=== PATIENT | male | born 1980 | race Two or more races ===

== ENCOUNTER 2025-06-28 01:08 | Emergency (ER) | payer SELFPAY ==
[2025-06-28 01:19] VITALS: BP 147/95; PULSE 75; RESP 18; TEMP 36.6; O2SAT 100
--- NOTE | 2025-06-28 01:58 | ED_ITS ---
HPI - Dental/Oral General Chief complaint: Dental/Oral Stated complaint: dental pain Time Seen by Provider: 06/28/25 01:45 History of Present Illness HPI Narrative: 44-year-old male presenting to the emergency depart with dental pain. States his pain is localized to his left upper jaw and going on throughout the day. He has tried some endd-jxs-wokkdqn Orajel and Tylenol/Aleve without much improvement. Has had previous dental work. No trauma or injury. Was otherwise in his normal state of health. States that switching around water helps with the pain but pain recurs frequently. No fever chills. No difficulty swallowing. Teeth map: 2 1. Silver cap 2. Fractured tooth with dental caries Related Data Allergies Allergy/AdvReac Type Severity Reaction Status Date / Time No Known Allergies Allergy Verified 06/28/25 01:09 Review of Systems 2 Review of Systems: As reviewed above in HPI All systems reviewed & are unremarkable except as noted in HPI and below Exam 2 Narrative: GENERAL: [Well-appearing, well-nourished, and in no acute distress.] HEAD: [Normocephalic, atraumatic.] EYES: [PERRLA and EOMI.] ENT: Nares clear, no rhinorrhea or epistaxis. Mucous membranes moist. Dental fracture with dental caries evident over tooth 16. On the left side. Location of patient's pain. No periapical abscess or gingival disease evident. NECK: Supple. CHEST: No labored breathing. Symmetric chest rise HEART: No tachycardia ABDOMEN: Nondistended EXTREMITIES: Normal range of motion. [No edema.] SKIN: Warm, dry, no rash. NEURO: [No focal deficits]. Alert and oriented [x3.] PSYCH: [Normal mood and affect.] Course Vital Signs Vital signs: Vital Signs Temperature 36.6 C 06/28/25 01:19 Pulse Rate 75 06/28/25 01:19 Respiratory Rate 18 06/28/25 01:19 Blood Pressure 147/95 H 06/28/25 01:19 Pulse Oximetry 100 06/28/25 01:19 Oxygen Delivery Room Air 06/28/25 01:19 Temperature 36.6 C 06/28/25 01:19 Pulse Rate 80 06/28/25 03:25 Respiratory Rate 22 H 06/28/25 03:25 Blood Pressure 146/96 H 06/28/25 03:25 Pulse Oximetry 100 06/28/25 03:25 Oxygen Delivery Room Air 06/28/25 01:19 Procedures Nerve Block Nerve Block 1: Nerve block date: 06/28/25 Nerve block time: 03:20 Time out performed: Yes Local Anesthetic: bupivacaine 0.5% Amount of anesthesia used (mL): 3 Side: left Intraoral Nerve Block: superior alveolar and inferior alveolar Procedure Successful: Yes Patient Tolerated Procedure: well and no complications Complications: none MDM - Dental/Oral MDM Narrative Medical decision making narrative: 44-year-old male presenting to the emergency depart with dental pain. States his pain is localized to his left upper jaw and going on throughout the day. He has tried some bwag-fmr-ffdpgov Orajel and Tylenol/Aleve without much improvement. Has had previous dental work. No trauma or injury. Was otherwise in his normal state of health. States that switching around water helps with the pain but pain recurs frequently. No fever chills. No difficulty swallowing. Dental fracture with dental caries evident over tooth 16. On the left side. Location of patient's pain. No periapical abscess or gingival disease evident. Patient is hemodynamically stable and afebrile. Given viscous lidocaine for pain control as well as low-dose oxycodone and Augmentin. Will be discharged home with regimen. Will need dental follow-up. Patient still having pain prior to discharge. Offered him nerve block which he accepted with improvement in pain control afterwards. Medical Records Attestation: I reviewed the patient's medical records. Discharge Plan Discharge Clinical Impression: Toothache, Fracture of tooth Patient Disposition: Home Condition: Stable Instructions: Antibiotic Form, Toothache (ED) Additional Instructions: You have a fractured tooth in the left upper jaw which is likely the source severe pain. We will treat this with antibiotics and pain control medications. You can use viscous lidocaine to swish around the area to calm down the sensation. Follow-up with the dentist. Return with any emergencies. Patient Language: Slovenian Prescriptions: New amoxicillin-pot clavulanate 875-125 mg tablet 1 tablet PO Q12H 7 Days Qty: 14 0RF oxycodone 5 mg tablet 5 mg PO Q8H PRN (Reason: pain) Qty: 10 0RF lidocaine HCl [Lidocaine Viscous] 2 % solution 1 applic mucous membrane QID PRN (Reason: pain) Qty: 100 0RF Follow-up/Referrals: PHYSICIAN,[facility] [employer] [employer] [Primary Care Provider, Internal Medicine] Time of Disposition: 02:05
--- OUTSIDE RECORDS SUMMARY | 2025-06-28 02:21 | XMS_ITS | Clinical Summary ---
Author Organization [facility] Address [address] [place] [address] Care Team Providers Care [employer] Name Role Phone Unavailable Primary Care Provider Unavailabl e Allergies No known active allergies Social History Tobacco Use Types Packs/Day Years Used Date Smoking Tobacco: Never Assessed Sex and Gender Information Value Date Recorded Sex Assigned at Not on file Legal Sex Male 11:11 AM EDT Gender Identity Not on file Sexual Orientation Not on file Plan of Treatment Health Maintenance Due Date Last Done Comments Anxiety Screening 1997 Depression Screening 1997 HIV Screening 1997 Hepatitis C Screening 1997 DTaP,Tdap,Td Vaccine (1 - Tdap) 1998 Hepatitis B Vaccine (1 of 3 - 19+ 3-dose series) 08/30 HPV Vaccine (1 - 3-dose SCDM series) [address] Colonography 2024 Cologuard (FIT-DNA) 2024 Colonoscopy 2024 Colorectal Cancer Screening 2024 Diabetes Screening 2024 Fecal Occult Blood 2024 Sigmoidoscopy 2024 Covid-19 Vaccine ( season) 2025 Influenza Vaccine (#1) 2025 Insurance [facility] Member Subscriber Plan / Payer (Ef fective 2024-Present) Name:Sánchez Castorena Relation to Subscriber:Self Name:Sánchez Castorena Payer ID:Not on file Group ID:Not on file Type:Indemnity Address: [address] [place] [id number]
[2025-06-28] MEDS: oxyCODONE HCL (*CRX) 2.5 MG TAB IR PO (02:32)
[2025-06-28] MEDS: LIDOCAINE 2% VISC SOLN 15 ML UDC PO (02:33)
--- NOTE | 2025-06-28 02:52 | PC.NURSE ---
This RN attempted to d/c pt. This RN went over d/c instructions and got a set of vitals and educated pt on instructions ans prescriptions. Pt then keeps continuously drinking water from the sink saying this is crazy. Pt puts hand in this RN's face and says he wants to speak to the Doctor.
[2025-06-28 03:25] VITALS: BP 146/96; PULSE 80; RESP 22; O2SAT 100
== END 2025-06-28 03:28 | disposition home or self-care (01) ==
LOC: ANHED 02:19
PROVIDERS: Emergency Provider Student in an Organized Health Care Education/Training Program
DX: S02.5XXA Fracture of tooth (traumatic), initial encounter for closed fracture (principal); X58.XXXA Exposure to other specified factors, initial encounter
CPT/HCPCS: 64400; 99283; A9270